=== PATIENT | male | born 1950 | race Caucasian/White ===

== ENCOUNTER → 2016-08-24 | Outpatient (CLI) | payer OTHER, BC ==
[~2016-08-24] MED LIST: ACET-1256 PO; ASCA500 PO; ASPI325T45 PO; MULT-506 PO
[2016-08-24 11:30] LABS: HEPATITIS B AB NEG
[2016-08-24 11:37] LABS: PROSTATE SPECIFIC ANTIGEN 0.412 ng/ml (0.000-4.000); THYROID STIMULATING HORMONE 3.49 uIu/ml (0.300-4.500)
[2016-08-26 19:37] LABS: HEP B QUANT <20 IU/mL (<20); HEP B QUANT LOG IU/ML <1.30 Log IU/mL (<1.30)
== END | disposition home or self-care (01) ==
LOC: C.LAB1850 09:56
PROVIDERS: ATTEND Internal Medicine
DX: Z12.5 Encounter for screening for malignant neoplasm of prostate (principal); Z11.59 Encounter for screening for other viral diseases; B19.10 Unspecified viral hepatitis B without hepatic coma; Z13.29 Encounter for screening for other suspected endocrine disorder

== ENCOUNTER → 2016-08-31 | Outpatient (CLI) | payer OTHER, BC ==
--- NOTE | 2016-08-31 08:52 | DIAGNOSTIC IMAGING REPORT ---
LEFT NECK ULTRASOUND CLINICAL HISTORY: Left neck mass COMPARISON STUDY: No previous studies for comparison. FINDINGS: In the left submandibular region, there is a well-circumscribed wider than tall hypoechoic mass measuring 26 x 21 x 7 mm. This appears relatively similar to the preceding study. Also noted is a 20 x 12 x 6 mm subjacent lymph node. IMPRESSION: 1. Persistent left submandibular region well-circumscribed mass measuring 26 x 21 x 7 mm. The imaging findings are consistent with although not specific for a lipoma 2. Subjacent lymph node measuring 20 x 12 x 6 mm Electronically signed by: Luan Whaley M.D. 08/31/2016 8:50 AM Dictated Date/Time: 08/31/2016 8:47 AM
== END | disposition home or self-care (01) ==
LOC: C.ULTR 08:23
PROVIDERS: ATTEND Internal Medicine
DX: R22.1 Localized swelling, mass and lump, neck (principal)